=== PATIENT | male | born 1960 | race Caucasian/White ===

== ENCOUNTER 2018-06-24 11:00 | Emergency (ER) | payer OTHER ==
[~2018-06-24] VITALS: Ht 182.9 cm; Wt 117.9 kg
[2018-06-24 11:00] VITALS: BP 130/68
[2018-06-24] MEDS ORDERED: KETOROLAC TROMETHAMINE INJ 30 MG/ML VIAL ONE (12:57)
[2018-06-24] MEDS ORDERED: KETOROLAC TROMETHAMINE INJ 60 MG/2 ML VIAL IM ONE (13:00)
== END 2018-06-24 13:05 | disposition home or self-care (01) ==
LOC: ER 11:04
DX: M79.672 Pain in left foot (principal); M72.2 Plantar fascial fibromatosis; R20.2 Paresthesia of skin; M19.072 Primary osteoarthritis, left ankle and foot; E78.00 Pure hypercholesterolemia, unspecified; F10.10 Alcohol abuse, uncomplicated; Y90.9 Presence of alcohol in blood, level not specified
CPT/HCPCS: 73630; 96372; 99284; A4606; J1885; Z7610

== ENCOUNTER 2019-03-23 22:38 | Emergency (ER) | payer OTHER ==
[~2019-03-23] VITALS: Ht 177.8 cm; Wt 107.5 kg
[2019-03-23 22:55] VITALS: BP 151/81
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
[2019-03-23] MEDS ORDERED: IBUPROFEN 400 MG TABLET ONE (23:14)
--- NOTE | 2019-03-23 23:27 | NUR ---
pot fluxer at the bed side
[2019-03-23] MEDS ORDERED: IBUPROFEN 400 MG TABLET PO ONE (23:30)
--- NOTE | 2019-03-24 00:32 | NUR ---
Patient discharged to home in stable condition. Written and verbal after care instructions given. Patient verbalizes understanding of instruction.
== END 2019-03-24 00:33 | disposition home or self-care (01) ==
LOC: ER 22:41
DX: M25.572 Pain in left ankle and joints of left foot (principal); E78.00 Pure hypercholesterolemia, unspecified; F10.10 Alcohol abuse, uncomplicated; Y90.9 Presence of alcohol in blood, level not specified
CPT/HCPCS: 73610-TC

== ENCOUNTER 2021-09-26 20:09 | Emergency (ER) | payer OTHER ==
[~2021-09-26] VITALS: Ht 180.3 cm; Wt 107.5 kg
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
[2021-09-26] MEDS ORDERED: oxyCODONE/APAP (5/325 MG) 1 UDTAB TABLET ONE (20:51)
[2021-09-26] MEDS ORDERED: oxyCODONE/APAP (5/325 MG) 1 UDTAB TABLET PO ONE (21:00)
--- NOTE | 2021-09-26 21:01 | NUR ---
BLOOD COLLECTED AND SENT TO LAB
[2021-09-26] MEDS ORDERED: IOHEXOL-350 100 ML VIAL IV ONE (21:09)
[2021-09-26] MEDS ORDERED: IV NS 0.9% 250 ML IV ONE (21:09)
[2021-09-26 21:36] LABS: BASOPHILS % (AUTO) 0.5 % (0.0-2.0); EOSINOPHILS % (AUTO) 4.4 % (0.0-6.0); HEMATOCRIT 45 % (39-51); LYMPHOCYTES # (AUTO) 3.1 K/uL (0.8-4.8); LYMPHOCYTES % (AUTO) 37.2 % (20.0-44.0); MEAN CORPUSCULAR HGB CONC 33 g/dl (31.0-36.0); MEAN CORPUSCULAR VOLUME 90 fL (80-96); MONOCYTES # (AUTO) 0.8 K/uL (0.1-1.30); MONOCYTES % (AUTO) 9.6 % (2.0-12.0); NEUTROPHILS # (AUTO) 4.1 K/uL (1.8-8.9); NEUTROPHILS % (AUTO) 48.3 % (43.0-81.0); PLATELET COUNT (AUTO) 261 K/uL (150-450); RED BLOOD CELL COUNT(AUTO) 5.03 MIL/uL (4.5-6.0); WHITE BLOOD COUNT (AUTO) 8.4 K/uL (4.3-11.0)
[2021-09-26 21:56] LABS: CARBON DIOXIDE 26 mmol/L (21-32); CHLORIDE 102 mmol/L (98-107); CREATININE 0.7 mg/dL (0.6-1.3); GLUCOSE 95 mg/dL (74-106); SODIUM SERUM 139 mmol/L (136-145); UREA NITROGEN, BLOOD 17 mg/dL (7-18)
[2021-09-26] MEDS ORDERED: OXYC5CAP18 PO (22:16)
[2021-09-26] MEDS ORDERED: NAPR-1009 PO (22:16)
--- NOTE | 2021-09-26 22:21 | NUR ---
Patient discharged to home in stable condition. Written and verbal after care instructions given. Patient verbalizes understanding of instruction.
[2021-09-26 22:22] VITALS: BP 138/70
== END 2021-09-26 22:28 | disposition home or self-care (01) ==
LOC: ER 20:15
DX: S29.9XXA Unspecified injury of thorax, initial encounter (principal); W19.XXXA Unspecified fall, initial encounter; Y93.89 Activity, other specified; Y92.89 Other specified places as the place of occurrence of the external cause; Y99.8 Other external cause status
CPT/HCPCS: 36415; 71045; 71275; 80048; 84484; 85025; 85378; 93005 ×2; 99285; J7050; Q9967